=== PATIENT | female | born 1990 | race Caucasian/White ===

== ENCOUNTER 2023-01-30 11:56 | Emergency (ER) | payer MEDICAID ==
[~2023-01-30] VITALS: Ht 175 cm; Wt 68.0 kg
[2023-01-30] MEDS ORDERED: morphine INJ 10 MG/ML 1ML (SYR OR VIAL) IM STA (12:19)
[2023-01-30 12:22] LABS: BILIRUBIN,URINE NEGATIVE (NEGATIVE); CLARITY,URINE CLEAR; COLOR,URINE YELLOW; GLUCOSE, URINE (UA) NEGATIVE (NEGATIVE); KETONES,URINE NEGATIVE (NEGATIVE); LEUKOCYTE ESTERASE ,URINE NEGATIVE (NEGATIVE); NITRITE,URINE NEGATIVE (NEGATIVE); PROTEIN,URINE NEGATIVE (NEGATIVE)
[2023-01-30] MEDS ORDERED: OXYC1TAB11 PO (12:24)
--- NOTE | 2023-01-30 12:25 | ED Back Pain ---
General Chief Complaint: Back Problems Stated Complaint: BACK PAIN Source of Information: Patient History of Present Illness Date Seen by Provider: Jan 30, 2023 Time Seen by Provider: 12:04 Initial Comments 33-year-old female presenting with complaints of chronic back pain. She states that she moved to [place] from the [facility] and has not establish care with a provider in [place] yet. She was waiting on her [place] Medicaid to kick in and replace her [place] Medicaid. She had been seen in clinic in [place] by Dr. Constance Pabon. Dr. Pabon had been prescribing oxycodone 5/325 1 every 8 hours for her chronic pain. Patient states that she felt like she needed a higher dose of the medicine as the medicine was not helping as well and was also causing her to start having itching. She reports that she has an allergy to hydrocodone because it causes itching. She has previously taken a morphine pill from her relative and states that that had been the only thing that helped with her pain in the past and it did not make her itch. She has an appointment to establish care with Katina Hugo through [facility] on February 11. She presents to the emergency department today requesting pain control until she can be seen in the clinic. She denies any new injury or fall. She has not had no loss of bowel or bladder control. She states she intermittently will have some numbness in her right arm and left leg. She reports that her back pain issues stem from a traumatic fall when she was 10 and have advanced since then. She denies any new numbness or weakness in her arms or legs. Location: Lumbar Spine, T-Spine Timing/Duration: Constant (Chronic pain present for years) Severity: Severe Pain/Injury Location: Back Method of Injury: Fall (When she was 10 years old and progressed from then) Modifying Factors: Worse With Movement; Improves With Pain Medication Associated Symptoms: No muscle spasms, No fever, No weakness, No numbness in legs/feet, No tingling in legs/feet, No sensory/motor loss; lower back pain; No loss of bladder control, No loss of bowel control Allergies and Home Medications Allergies Coded Allergies: hydrocodone (Verified Allergy, Intermediate, Itching, 01/30/23) Patient Home Medication List Home Medication List Reviewed: Yes Oxycodone HCl/Acetaminophen (Oxycodone-Acetaminophen 5-325) 5 Mg-325 Mg Tablet, 1 EACH PO Q8H PRN for PAIN SEVERE Prescribed by: SIMONE TAM on 01/30/23 1225 Review of Systems Constitutional: No chills, No fever EENTM: no symptoms reported Respiratory: no symptoms reported Cardiovascular: no symptoms reported Gastrointestinal: no symptoms reported Genitourinary: no symptoms reported Musculoskeletal: see HPI Skin: no symptoms reported Psychiatric/Neurological: See HPI Past Gowmrod-Oxpqsd-Wszohm Hx Patient Social History Tobacco Use?: Yes Tobacco type used: Cigarettes Smoking Status: Former Smoker Use of E-Cig and/or Vaping dev: No Substance use?: No Past Medical History Surgery/Hospitalization HX: Chronic back pain Physical Exam Vital Signs Vital Signs - First Documented 01/30/23 12:00 Temp 36.7 Pulse 82 Resp 16 B/P (MAP) 124/89 (101) Pulse Ox 100 O2 Delivery Room Air Capillary Refill : Height, Weight, BMI Height: '" Weight: lbs. oz. kg; BMI Method: General Appearance: Mild Distress (Patient is having a hard time sitting still and intermittently wincing ), Thin HEENT: PERRL/EOMI, Other (Widespread dental decay and poor dentition) Back: Vertebral Tenderness Extremity: No Pedal Edema Neurologic/Psychiatric: Alert, Oriented x3, transitions manager II-XII Norm as Tested Skin: Warm/Dry Progress/Results/Core Measures Results/Orders Lab Results Laboratory Tests Test 01/30/23 12:17 Range/Units Urine Color YELLOW Urine Clarity CLEAR Urine pH 8.0 5-9 Urine Specific [place] 1.015 L 1.016-1.022 Urine Protein NEGATIVE NEGATIVE Urine Glucose (UA) NEGATIVE NEGATIVE Urine Ketones NEGATIVE NEGATIVE Urine Nitrite NEGATIVE NEGATIVE Urine Bilirubin NEGATIVE NEGATIVE Urine Urobilinogen 0.2 < = 1.0 MG/DL Urine Leukocyte Esterase NEGATIVE NEGATIVE Urine RBC (Auto) NEGATIVE NEGATIVE Urine RBC NONE /HPF Urine WBC RARE /HPF Urine Squamous Epithelial Cells 10-25 H /HPF Urine Crystals NONE /LPF Urine Bacteria FEW H /HPF Urine Casts NONE /LPF Urine Mucus NEGATIVE /LPF Urine Culture Indicated NO Urine Opiates Screen NEGATIVE NEGATIVE Urine Oxycodone Screen POSITIVE H NEGATIVE Urine Methadone Screen NEGATIVE NEGATIVE Urine Propoxyphene Screen NEGATIVE NEGATIVE Urine Barbiturates Screen NEGATIVE NEGATIVE Ur Tricyclic Antidepressants Screen NEGATIVE NEGATIVE Urine Phencyclidine Screen NEGATIVE NEGATIVE Urine Amphetamines Screen NEGATIVE NEGATIVE Urine Methamphetamines Screen NEGATIVE NEGATIVE Urine Benzodiazepines Screen NEGATIVE NEGATIVE Urine Cocaine Screen NEGATIVE NEGATIVE Urine Cannabinoids Screen POSITIVE H NEGATIVE My Orders Orders - SIMONE TAM MD Ua Culture If Indicated (01/30/23 12:05) Drug Screen Stat (Urine) (01/30/23 12:05) Urine Bedside (01/30/23 12:05) Morphine Injection (Morphine Injection (01/30/23 12:19) Vital Signs/I&O 01/30/23 01/30/23 12:00 12:33 Temp 36.7 36.7 Pulse 82 82 Resp 16 16 B/P (MAP) 124/89 (101) 124/89 Pulse Ox 100 100 O2 Delivery Room Air Room Air Progress Progress Note #1: Progress Note Advised patient that I would not be able to refill her chronic pain medicine but I could write for a few days to try and help get her by until she can be seen in the [facility] clinic. Will review her [employer] prescription monitoring program to look at her prescriptions for controlled substances. Ordered a urinalysis along with bedside test and urine drug screen to look for other substances in her system. Progress Note #2: Progress Note Urinalysis was clear and did not show any infection. Bedside test was negative. On review of prescription monitoring program she did have prescriptions that had been written for by Dr. Pabon out of [facility] for the oxycodone/acetaminophen 5/325. She was getting 90 pills to the last month. She has not had a refill since December 31. Will prescribe a 5-day course of oxycodone/acetaminophen 5/325 1 every 8 hours as needed for severe pain. Given a single IM shot of morphine 10 mg here in the ED to try and help with her pain. She requested prescriptions be sent to [facility] at [facility] Urine drug screen showed Marijuana and Opiates. She is prescribed the Oxycodone and reports she has a medical card for marijuana in [place]. Departure Impression Primary Impression: Acute exacerbation of chronic low back pain Additional Impression: Chronic high back pain Disposition: 01 HOME, SELF-CARE Condition: Stable Departure-Patient Inst. Decision time for Depature: 12:22 Referrals: NO,LOCAL PHYSICIAN (PCP) Primary Care Physician [facility] Patient Instructions: Upper Back Pain ED, Opioids for Short-Term Treatment of Pain ED, Low Back Pain ED Add. Discharge Instructions: From the Emergency department we will not refill your chronic pain medicines. Make sure to keep your appointment to establish care with [facility] so they can help manage your chronic pain. All discharge instructions reviewed with patient and/or family. Voiced understanding. Scripts Oxycodone HCl/Acetaminophen (Oxycodone-Acetaminophen 5-325) 5 Mg-325 Mg Tablet 1 EACH PO Q8H PRN for PAIN SEVERE MDD 6 for 5 Days, #15 TAB 0 Refills Prov: SIMONE ATM MD 01/30/23 SIMONE TAM MD Jan 30, 2023 12:25
[2023-01-30 12:29] LABS: BACTERIA,URINE FEW /HPF; WBC,URINE RARE /HPF
[2023-01-30 12:33] VITALS: BP 124/89
[2023-01-30 13:00] LABS: AMPHETAMINE SCREEN, URINE NEGATIVE (NEGATIVE); BARBITURATE SCREEN URINE NEGATIVE (NEGATIVE); CANNABINOID SCREEN, URINE POSITIVE (NEGATIVE); COCAINE SCREEN URINE NEGATIVE (NEGATIVE); METHADONE STAT NEGATIVE (NEGATIVE); OPIATE SCREEN URINE NEGATIVE (NEGATIVE); OXYCODONE STAT POSITIVE (NEGATIVE); PROPOXYPHENE STAT NEGATIVE (NEGATIVE); TRICYCLIC ANTIDEPRESSANTS SCRE NEGATIVE (NEGATIVE)
== END 2023-01-30 12:35 | disposition home or self-care (01) ==
LOC: ER FS 11:58
DX: M54.50 Low back pain, unspecified (principal); G89.29 Other chronic pain; Z87.891 Personal history of nicotine dependence; Z88.5 Allergy status to narcotic agent
CPT/HCPCS: 80306; 81000; 84703; 96372; 99284